=== PATIENT | female | born 1960 | race African-American/Black ===

== ENCOUNTER 2018-03-14 13:29 | Observation (INO) ==
[2018-03-14 14:22] LABS: Bilirubin,Urine Negative (Negative); Clarity,Urine Clear (Clear); Color,Urine Yellow (Yellw/Straw); Glucose,Urine (UA) Negative (Negative); Leukocyte Esterase,Urine Trace (Negative); Nitrite,Urine Negative (Negative); PH,Urine 6.5 (5.0-8.5); Urobilinogen,Urine 0.2 mg/dL (Less than 2)
[2018-03-14] MEDS ORDERED: Morphine Inj 4 MG/ML Vial IV.PUSH ONE (14:51)
[2018-03-14] MEDS ORDERED: Sod Chloride 0.9% Inj 1,000 ML IV.SIG ONE (14:51)
[2018-03-14 15:12] LABS: Baso % (Auto) 0.5 % (0.0-2.0); Eos % (Auto) 0.3 % (0.0-4.0); Hematocrit 36.1 % (35.0-46.0); Hemoglobin 11.7 gm/dL (11.6-15.3); Lymph # (Auto) 1.4 th/mm3 (1.0-4.8); Lymph % (Auto) 32.6 % (9.0-44.0); Mean Corpuscular HGB Conc 32.5 % (32.0-36.0); Mean Corpuscular Hemoglobin 22.2 pg (27.0-34.0); Mean Corpuscular Volume 68.2 fL (80.0-100.0); Mean Platelet Volume 9.2 fL (7.0-11.0); Mono # (Auto) 0.2 th/mm3 (0.0-0.9); Mono % (Auto) 4.3 % (0.0-8.0); Neut # (Auto) 2.6 th/mm3 (1.8-7.7); Neut % (Auto) 62.3 % (16.0-70.0); Platelet Count 246 th/mm3 (150-450); Red Blood Count 5.29 mil/mm3 (4.00-5.30); Red Cell Distribution Width 15.5 % (11.6-17.2); White Blood Count 4.2 th/mm3 (4.0-11.0)
[2018-03-14 15:20] LABS: Chloride 106 meq/L (98-107); Potassium 3.8 meq/L (3.5-5.1); Sodium 139 meq/L (136-145)
[2018-03-14 15:24] LABS: Albumin 3.3 g/dL (3.4-5.0); Calcium 8.8 mg/dL (8.5-10.1); Lipase 61 U/L (73-393)
[2018-03-14 15:25] LABS: Anion Gap 6 meq/L (5-15); Blood Urea Nitrogen 10 mg/dL (7-18); Carbon Dioxide 26.7 meq/L (21.0-32.0); Glucose,Random 103 mg/dL (74-106)
[2018-03-14 15:26] LABS: Activated Partial Thrombo Time 29.7 sec (23.4-31.7); Prothrombin Time 9.8 sec (9.8-11.6)
[2018-03-14 15:27] LABS: Alanine Aminotransferase 16 U/L (10-53); Aspartate Aminotransferase 11 U/L (15-37); Glomerular Filtration Rate 83 mL/min (>89)
[2018-03-14 15:30] LABS: Alkaline Phosphatase 73 U/L (45-117)
--- NOTE | 2018-03-14 16:51 | CT ---
EXAM DATE: 03/14/2018 4:42 PM EST AGE/SEX: 57 years / Female INDICATIONS: Left lower abdominal pain. Nausea and vomiting. CLINICAL DATA: This is the patient's initial encounter. Patient reports that signs and symptoms have been present for 1 week and indicates a pain score of 9/10. MEDICAL/SURGICAL HISTORY: None. section. ORAL CONTRAST: No oral contrast ingested. RADIATION DOSE: 22.27 CTDI (mGy) ; Patient body habitus COMPARISON: No prior exams available for comparison. TECHNIQUE: Multiple contiguous axial images were obtained through the abdomen and pelvis following b olus infusion of 90 ml Omnipaque 350 (iohexol) nonionic water-soluble contrast as a single exam dos e. No oral contrast ingested. Using automated exposure control and adjustment of the mA and/or kV ac cording to patient size, radiation dose was kept as low as reasonably achievable to obtain optimal di agnostic quality images. DICOM format image data is available electronically for review and comparis on. FINDINGS: Lower Lungs: The visualized lower lungs are clear. Liver: The liver has a homogeneous density without space-occupying lesion. There is no dilation of th e biliary tree. Spleen: Homogeneous density without enlargement. Pancreas: Unremarkable without mass or calcification. Kidneys: Normal in size and shape. No evidence of mass or hydronephrosis. Adrenal Glands: Unremarkable. Aorta: The aorta and proximal iliac vessels are grossly unremarkable without aneurysmal dilation. Bowel/Mesentery: Appendix not identified. No free air or free fluid. Abdominal Wall: There is a large midline anterior abdominal wall hernia measuring 8.5 cm in greatest transverse dimension. It has a neck measuring 3 cm in diameter. It contains a loop of distal small b owel. Stranding opacity and hazy opacity is seen in the fat surrounding the loop of bowel in the juan ia. Stool-like material is seen in the small bowel just proximal to this and there is minimal dilatat ion of the small bowel proximal to this measuring up to 3 cm in diameter. Mild wall thickening of the small bowel loop within the hernia. Retroperitoneum: No evidence of adenopathy in the retrocrural, para-aortic, or deep pelvic regions. Bladder: Contours are smooth. Reproductive Organs: Enlarged uterus likely representing fibroid uterus. Inguinal: The inguinal region is unremarkable without evidence of adenopathy. Bony Structures: Unremarkable. CONCLUSION: 1. Midline anterior abdominal wall hernia measuring 8 cm with a 3 cm neck. Hernia contains a loop of small bowel that has thickened wall and surrounding inflammatory change. Mild dilatation of the smal l bowel just proximal to the herniated loop. Stool-like material is in this segment of small bowel. T he more proximal small bowel loops are normal diameter. No free air or free fluid. 2. Fibroid uterus. Electronically signed by: Manuel Millard MD 03/14/2018 4:50 PM EST
[2018-03-14] MEDS ORDERED: Bisacodyl 10 MG Supp RECTAL PRN (18:59)
[2018-03-14] MEDS ORDERED: Acetaminophen 325 MG Tablet PO PRN (18:59)
[2018-03-14] MEDS ORDERED: Morphine Inj 4 MG/ML Vial IV.PUSH PRN (19:01)
--- NOTE | 2018-03-14 19:41 | ED ---
HPI General Chief complaint: Abdominal Pain Stated complaint: low abd pain/nausea (-vom) x 1wk Time Seen by Provider: 03/14/18 14:42 Source: patient Mode of arrival: ambulatory Limitations: no limitations History of Present Illness HPI narrative: Patient is a 57 year old female who comes in complaining of abdominal pain. She says the pain is been going on for the past week, but has gotten worse in the past few days. She reports nausea and vomiting, her last episode was earlier today. She says she is still having normal bowel movements. She has not taken anything for her pain. She says she has never had pain like this before. She denies fever or chills. Severity is mild to moderate. Related Data Home Medications Medication Instructions Recorded Confirmed No Known Home Medications 03/14/18 03/14/18 Allergies Allergy/AdvReac Type Severity Reaction Status Date / Time No Known Allergies Allergy Verified 03/14/18 13:35 Review of Systems ROS: all other systems reviewed are negative Constitutional Denies chills and Denies fever(s) ENT Denies dizziness Cardiovascular Denies chest pain and Denies dyspnea Respiratory Denies cough and Denies dyspnea Gastrointestinal Reports abdominal pain, Reports nausea and Reports vomiting Musculoskeletal Denies myalgias and Denies arthralgias Integumentary/Breasts Denies sores and Denies wounds Neurologic Denies focal weakness and Denies numbness [facility] Medical History Medical History Patient denies medical problems (Acute) Surgical History Surgical History H/O section (Acute) Social History Social History Second Hand Smoke Exposure: No Smoking Status: Never smoker How Often Do You Have a Drink Containing Alcohol: Never Immunization History Tetanus Immunization: >5 Years Exam Narrative Exam Narrative: GENERAL: Awake and alert, no acute distress. SKIN: Focused skin assessment warm/dry. HEAD: Atraumatic. Normocephalic. EYES: Pupils equal and round. No scleral icterus. ENT: Mucous membranes pink and moist. NECK: Trachea midline. No JVD. CARDIOVASCULAR: Regular rate and rhythm. No murmur appreciated. RESPIRATORY: No accessory muscle use. Clear to auscultation. Breath sounds equal bilaterally. GASTROINTESTINAL: Large hernia around the umbilicus and the surgical scar on her the middle of her abdomen. There is some erythema to the skin over the hernia. This is tender to palpation, not reducible. MUSCULOSKELETAL: No obvious deformities. No clubbing. No cyanosis. No edema. NEUROLOGICAL: Awake and alert. No obvious cranial nerve deficits. Motor grossly within normal limits. Normal speech. PSYCHIATRIC: Appropriate mood and affect; insight and judgment normal. Procedures Procedural Sedation Indications: other (hernia reduction) ASA Class: ASA 2 Moderate Systemic Disease Preparation: residential monitor applied, pulse oximeter, capnometry used, supplemental O2 applied, suction/airway equipment at bedside and IV secured IV Propofol Dose (mgs): 70 Patient Tolerated Procedure: well and no complications Complications: none Course Initial Documented Vital Signs Temperature 98.4 F 03/14/18 13:32 Pulse Rate 94 H 03/14/18 13:32 Respiratory Rate 16 03/14/18 13:32 Blood Pressure 184/76 H 03/14/18 13:32 Pulse Oximetry 96 03/14/18 13:32 Last Documented Vital Signs Temperature 98.4 F 03/14/18 13:32 Pulse Rate 88 03/14/18 15:11 Respiratory Rate 18 03/14/18 15:11 Blood Pressure 173/84 H 03/14/18 15:11 Pulse Oximetry 96 03/14/18 18:40 Medical Decision Making MDM Narrative Medical decision making narrative: Patient is a 57-year-old female who comes in complaining of abdominal pain. Exam shows a large hernia to the abdominal wall. Patient says this has been there, but has been increasing in size and tenderness. IV established, labs sent. Labs show no acute abnormalities. CT abdomen pelvis performed shows a large abdominal wall hernia with inflammation of the bowel wall. Procedural sedation was performed, and attempt was made to reduce the hernia, but this was unsuccessful. I spoke with Dr. Barrera of general surgery who will take the patient to the OR. Patient admitted to medicine and will be transferred to the main hospital for surgical reduction of her hernia. Medical Screen Exam Complete: Yes Emergency Medical Condition: Yes Differential Diagnosis Differential Diagnosis: Incarcerated hernia versus strangulated hernia versus bowel obstruction Medical Records Medical records reviewed: Yes I reviewed the patient's medical records. Lab Data Lab results reviewed: Yes I reviewed the patient's lab results. Result diagrams: 03/14/18 15:00 03/14/18 15:00 Lab Results 03/14/18 03/14/18 03/14/18 Range/Units 13:35 15:00 15:00 CBC w Diff Slide review pending WBC 4.2 (4.0-11.0) th/mm3 RBC 5.29 (4.00-5.30) mil/mm3 Hgb 11.7 (11.6-15.3) gm/dL Hct 36.1 (35.0-46.0) % MCV 68.2 L (80.0-100.0) fL MCH 22.2 L (27.0-34.0) pg MCHC 32.5 (32.0-36.0) % RDW 15.5 (11.6-17.2) % Plt Count 246 (150-450) th/mm3 MPV 9.2 (7.0-11.0) fL Neut % (Auto) 62.3 (16.0-70.0) % Lymph % (Auto) 32.6 (9.0-44.0) % Craig % (Auto) 4.3 (0.0-8.0) % Eos % (Auto) 0.3 (0.0-4.0) % Baso % (Auto) 0.5 (0.0-2.0) % Neut # (Auto) 2.6 (1.8-7.7) th/mm3 Lymph # (Auto) 1.4 (1.0-4.8) th/mm3 [place] # (Auto) 0.2 (0.0-0.9) th/mm3 Eos # (Auto) 0.0 (0.0-0.4) th/mm3 Baso # (Auto) 0.0 (0.0-0.2) th/mm3 WBC Differential . Diff Scan Auto diff confirmed Differential Comment . PT 9.8 (9.8-11.6) sec INR 1.0 Ratio APTT 29.7 (23.4-31.7) sec Sodium (136-145) meq/L Potassium (3.5-5.1) meq/L Chloride (98-107) meq/L Carbon Dioxide (21.0-32.0) meq/L Anion Gap (5-15) meq/L BUN (7-18) mg/dL Creatinine (0.50-1.00) mg/dL Estimated GFR (>89) mL/min Random Glucose (74-106) mg/dL Lactic Acid (0.4-2.0) mmol/L Calcium (8.5-10.1) mg/dL Total Bilirubin (0.2-1.0) mg/dL AST (15-37) U/L ALT (10-53) U/L Alkaline Phosphatase (45-117) U/L Total Protein (6.4-8.2) g/dL Albumin (3.4-5.0) g/dL Lipase (73-393) U/L Ur Collection Type Clean catch Urine Color Yellow (Yellw/Straw) Urine Clarity Clear (Clear) Urine pH 6.5 (5.0-8.5) Ur Specific [place] 1.020 (1.002-1.035) Urine Protein Negative (Neg-Trace) mg/dL Urine Glucose (UA) Negative (Negative) mg/dL Urine Ketones Negative (Negative) mg/dL Urine Occult Blood Trace (Negative) Urine Nitrate Negative (Negative) Urine Bilirubin Negative (Negative) Urine Urobilinogen 0.2 (Less than 2) mg/dL Ur Leukocyte Esterase Trace H (Negative) Urine RBC 4-15 H (0-3) /hpf Urine WBC 9-20 H (0-5) /hpf Ur Squamous Epith Cells 6-10 H (0-5) /hpf Micro UA Comment Culture indicated Ur Microscopic Review Microscopic reviewed Urine Culture Comments Culture indicated 03/14/18 03/14/18 Range/Units 15:00 15:00 CBC w Diff WBC (4.0-11.0) th/mm3 RBC (4.00-5.30) mil/mm3 Hgb (11.6-15.3) gm/dL Hct (35.0-46.0) % MCV (80.0-100.0) fL MCH (27.0-34.0) pg MCHC (32.0-36.0) % RDW (11.6-17.2) % Plt Count (150-450) th/mm3 MPV (7.0-11.0) fL Neut % (Auto) (16.0-70.0) % Lymph % (Auto) (9.0-44.0) % Craig % (Auto) (0.0-8.0) % Eos % (Auto) (0.0-4.0) % Baso % (Auto) (0.0-2.0) % Neut # (Auto) (1.8-7.7) th/mm3 Lymph # (Auto) (1.0-4.8) th/mm3 Craig # (Auto) (0.0-0.9) th/mm3 Eos # (Auto) (0.0-0.4) th/mm3 Baso # (Auto) (0.0-0.2) th/mm3 WBC Differential Diff Scan Differential Comment PT (9.8-11.6) sec INR Ratio APTT (23.4-31.7) sec Sodium 139 (136-145) meq/L Potassium 3.8 (3.5-5.1) meq/L Chloride 106 (98-107) meq/L Carbon Dioxide 26.7 (21.0-32.0) meq/L Anion Gap 6 (5-15) meq/L BUN 10 (7-18) mg/dL Creatinine 0.86 (0.50-1.00) mg/dL Estimated GFR 83 L (>89) mL/min Random Glucose 103 (74-106) mg/dL Lactic Acid 0.6 (0.4-2.0) mmol/L Calcium 8.8 (8.5-10.1) mg/dL Total Bilirubin 0.4 (0.2-1.0) mg/dL AST 11 L (15-37) U/L ALT 16 (10-53) U/L Alkaline Phosphatase 73 (45-117) U/L Total Protein 8.0 (6.4-8.2) g/dL Albumin 3.3 L (3.4-5.0) g/dL Lipase 61 L (73-393) U/L Ur Collection Type Urine Color (Yellw/Straw) Urine Clarity (Clear) Urine pH (5.0-8.5) Ur Specific [place] (1.002-1.035) Urine Protein (Neg-Trace) mg/dL Urine Glucose (UA) (Negative) mg/dL Urine Ketones (Negative) mg/dL Urine Occult Blood (Negative) Urine Nitrate (Negative) Urine Bilirubin (Negative) Urine Urobilinogen (Less than 2) mg/dL Ur Leukocyte Esterase (Negative) Urine RBC (0-3) /hpf Urine WBC (0-5) /hpf Ur Squamous Epith Cells (0-5) /hpf Micro UA Comment Ur Microscopic Review Urine Culture Comments Imaging Data Radiologist's impression: Abdomen/Pelvis CT 03/14/18 14:51 CONCLUSION: 1. Midline anterior abdominal wall hernia measuring 8 cm with a 3 cm neck. Hernia contains a loop of small bowel that has thickened wall and surrounding inflammatory change. Mild dilatation of the small bowel just proximal to the herniated loop. Stool-like material is in this segment of small bowel. The more proximal small bowel loops are normal diameter. No free air or free fluid. 2. Fibroid uterus. Discharge Plan Discharge Disposition Patient Disposition: 30 Still Patient Discharge Condition Condition: Stable Discharge Details Diagnosis: Incarcerated hernia Physicians Team ED Provider: Abimbola Sanderson Primary Care Provider: Manjinder Osborne Attending Provider: Sherif Simmons Other Providers: Jaciel Barrera Discharge Interventions Interventions: Vital Signs Last Done: 03/14/18 15:11 Status ED Status: Admitted Observation Patient
[2018-03-14] MEDS ORDERED: Glycopyrrolate Inj 1 MG/5 ML Syringe IV.PUSH ONE (20:33)
[2018-03-14] MEDS ORDERED: Lidocaine PF 1% Inj 5 ML Syringe OTHER ONE (20:33)
[2018-03-14] MEDS ORDERED: Neostigmine Inj 5 MG/5 ML Syringe IV.PUSH ONE (20:33)
[2018-03-14] MEDS ORDERED: ceFAZolin 2 GM Premix Inj 2 GM/50 ML PIGGYBACK IV.SIG ONE (20:38)
[2018-03-14] MEDS ORDERED: Bupivacaine/Epinephrine PF Inj 0.5% 30 ML Vial ONE (20:55)
[2018-03-14] MEDS ORDERED: Sugammadex Inj 200 MG/2 ML Vial IV.PUSH ONE (21:29)
[2018-03-14] MEDS ORDERED: fentaNYL Citrate Inj 250 MCG/5 ML Ampul ONE (21:47)
--- NOTE | 2018-03-14 21:52 | P.CONGS ---
[facility] Gen Surgery Consult Note Consult date: 03/14/18 Reason for consult: abdominal pain Narrative: There CONSULTATION NOTE FOR SURGICAL ATTENDING, DR. MIKAL BARRERA Patient has had an incisional hernia for some time she was able to reduce it at times but this time she could not she came into the emergency room found to have incarcerated incisional hernia at the umbilicus CT scan showed what appeared to be bowel stuck in the hernia. Surgery was consulted for evaluation and treatment of incarcerated incisional hernia Review of Systems Patient mainly complains of pain at her umbilicus where the incisional hernia is located All other systems reviewed negative except as stated in [facility] - History History Provided By: Patient - Medical History Medical History: Medical History (Last Reviewed 03/14/18 @ 21:48 by Mikal Barrera MD) Patient denies medical problems - Surgical History Surgical History: Surgical History (Last Reviewed 03/14/18 @ 21:48 by Mikal Barrera MD) H/O section - Social History I have reviewed the patient's Social History: Yes - Tobacco History Second Hand Smoke Exposure: No Tobacco Use In Past 30 Days: No Smoking Status: Never smoker - Alcohol History How Often Do You Have a Drink Containing Alcohol: Never - Immunization History Tetanus Immunization: >5 Years Medications and Allergies Active Medications: Active Medications Acetaminophen (Tylenol) 650 mg PO Q4H PRN PRN Reason: Headache, fever, pain 1-4 Al Hydroxide/Mg Hydroxide (Milk Of Magnesia Liq) 30 ml PO Q12H PRN PRN Reason: Mild Constipation Bisacodyl (Dulcolax Supp) 10 mg RECTAL DAILY PRN PRN Reason: SEVERE CONSITIPATION Sodium Chloride (Ns Inj) 1,000 mls @ 100 mls/hr IV.CONT .Q10H JASON Lactulose (Lactulose Liq) 30 ml PO DAILY PRN PRN Reason: SEVERE CONSITIPATION Morphine Sulfate (Morphine Inj) 4 mg IV.PUSH Q4H PRN PRN Reason: pain 5-10 Ondansetron HCl (Zofran Inj) 4 mg IV.PUSH Q6H PRN PRN Reason: NAUSEA OR VOMITING Sennosides (Senokot) 17.2 mg PO Q12H PRN PRN Reason: Moderate Constipation Sodium Chloride (Ns Flush) 2 ml IV.FLUSH PRN PRN PRN Reason: FLUSH AFTER USING IV ACCESS Allergies Allergy/AdvReac Type Severity Reaction Status Date / Time No Known Allergies Allergy Verified 03/14/18 13:35 Home Medications Medication Instructions Recorded Confirmed Type No Known Home Medications 03/14/18 03/14/18 History Exam Vital signs: Vital Signs 03/14/18 13:32 03/14/18 15:11 03/14/18 18:40 Temperature 98.4 F Pulse Rate 94 H 88 Respiratory Rate 16 18 Blood Pressure 184/76 H 173/84 H Pulse Oximetry 96 100 96 03/14/18 19:30 03/14/18 20:09 Temperature 98.4 F 98.6 F Pulse Rate 78 84 Respiratory Rate 20 26 H Blood Pressure 185/92 H 171/84 H Pulse Oximetry 99 Intake & Output 03/14/18 03/14/18 03/15/18 06:59 18:59 06:59 Intake Total 1000 / 1000 500 / 500 Output Total Balance 1000 / 1000 490 / 490 Weight 119 kg Intake: IV 1000 / 1000 NS Inj 1,000 ML @ Wide Open IV. 1000 / 1000 SIG BOLUS ONE Rx#:[id number] Anesthesia Amount 500 / 500 Output: Estimated Blood Loss Narrative: Patient is on the stretcher Pupils equal round reactive EOMI Neck is supple Chest clear heart regular rate Abdomen obese soft with a incarcerated hard firm incisional hernia at the umbilicus. No rebound or guarding Extremities moves all extremities well no clubbing cyanosis or edema Neurologic she is alert oriented moderate distress Results - Labs 03/14/18 15:00 03/14/18 15:00 Abnormal lab results 03/14/18 03/14/18 03/14/18 Range/Units 13:35 15:00 15:00 MCV 68.2 L (80.0-100.0) fL MCH 22.2 L (27.0-34.0) pg Estimated GFR 83 L (>89) mL/min AST 11 L (15-37) U/L Albumin 3.3 L (3.4-5.0) g/dL Lipase 61 L (73-393) U/L Ur Leukocyte Esterase Trace H (Negative) Urine RBC 4-15 H (0-3) /hpf Urine WBC 9-20 H (0-5) /hpf Ur Squamous Epith Cells 6-10 H (0-5) /hpf Laboratory Last Values CBC w Diff Slide review pending 03/14/18 15:00 WBC 4.2 th/mm3 (4.0-11.0) 03/14/18 15:00 RBC 5.29 mil/mm3 (4.00-5.30) 03/14/18 15:00 Hgb 11.7 gm/dL (11.6-15.3) 03/14/18 15:00 Hct 36.1 % (35.0-46.0) 03/14/18 15:00 MCV 68.2 fL (80.0-100.0) L 03/14/18 15:00 MCH 22.2 pg (27.0-34.0) L 03/14/18 15:00 MCHC 32.5 % (32.0-36.0) 03/14/18 15:00 RDW 15.5 % (11.6-17.2) 03/14/18 15:00 Plt Count 246 th/mm3 (150-450) 03/14/18 15:00 MPV 9.2 fL (7.0-11.0) 03/14/18 15:00 Neut % (Auto) 62.3 % (16.0-70.0) 03/14/18 15:00 Lymph % (Auto) 32.6 % (9.0-44.0) 03/14/18 15:00 [place] % (Auto) 4.3 % (0.0-8.0) 03/14/18 15:00 Eos % (Auto) 0.3 % (0.0-4.0) 03/14/18 15:00 Baso % (Auto) 0.5 % (0.0-2.0) 03/14/18 15:00 Neut # (Auto) 2.6 th/mm3 (1.8-7.7) 03/14/18 15:00 Lymph # (Auto) 1.4 th/mm3 (1.0-4.8) 03/14/18 15:00 [place] # (Auto) 0.2 th/mm3 (0.0-0.9) 03/14/18 15:00 Eos # (Auto) 0.0 th/mm3 (0.0-0.4) 03/14/18 15:00 Baso # (Auto) 0.0 th/mm3 (0.0-0.2) 03/14/18 15:00 WBC Differential . 03/14/18 15:00 Diff Scan Auto diff confirmed 03/14/18 15:00 Differential Comment . 03/14/18 15:00 PT 9.8 sec (9.8-11.6) 03/14/18 15:00 INR 1.0 Ratio 03/14/18 15:00 APTT 29.7 sec (23.4-31.7) 03/14/18 15:00 Sodium 139 meq/L (136-145) 03/14/18 15:00 Potassium 3.8 meq/L (3.5-5.1) 03/14/18 15:00 Chloride 106 meq/L (98-107) 03/14/18 15:00 Carbon Dioxide 26.7 meq/L (21.0-32.0) 03/14/18 15:00 Anion Gap 6 meq/L (5-15) 03/14/18 15:00 BUN 10 mg/dL (7-18) 03/14/18 15:00 Creatinine 0.86 mg/dL (0.50-1.00) 03/14/18 15:00 Estimated GFR 83 mL/min (>89) L 03/14/18 15:00 Random Glucose 103 mg/dL (74-106) 03/14/18 15:00 Lactic Acid 0.6 mmol/L (0.4-2.0) 03/14/18 15:00 Calcium 8.8 mg/dL (8.5-10.1) 03/14/18 15:00 Total Bilirubin 0.4 mg/dL (0.2-1.0) 03/14/18 15:00 AST 11 U/L (15-37) L 03/14/18 15:00 ALT 16 U/L (10-53) 03/14/18 15:00 Alkaline Phosphatase 73 U/L (45-117) 03/14/18 15:00 Total Protein 8.0 g/dL (6.4-8.2) 03/14/18 15:00 Albumin 3.3 g/dL (3.4-5.0) L 03/14/18 15:00 Lipase 61 U/L (73-393) L 03/14/18 15:00 Ur Collection Type Clean catch 03/14/18 13:35 Urine Color Yellow (Yellw/Straw) 03/14/18 13:35 Urine Clarity Clear (Clear) 03/14/18 13:35 Urine pH 6.5 (5.0-8.5) 03/14/18 13:35 Ur Specific [place] 1.020 (1.002-1.035) 03/14/18 13:35 Urine Protein Negative mg/dL (Neg-Trace) 03/14/18 13:35 Urine Glucose (UA) Negative mg/dL (Negative) 03/14/18 13:35 Urine Ketones Negative mg/dL (Negative) 03/14/18 13:35 Urine Occult Blood Trace (Negative) 03/14/18 13:35 Urine Nitrate Negative (Negative) 03/14/18 13:35 Urine Bilirubin Negative (Negative) 03/14/18 13:35 Urine Urobilinogen 0.2 mg/dL (Less than 2) 03/14/18 13:35 Ur Leukocyte Esterase Trace (Negative) H 03/14/18 13:35 Urine RBC 4-15 /hpf (0-3) H 03/14/18 13:35 Urine WBC 9-20 /hpf (0-5) H 03/14/18 13:35 Ur Squamous Epith Cells 6-10 /hpf (0-5) H 03/14/18 13:35 Micro UA Comment Culture indicated 03/14/18 13:35 Ur Microscopic Review Microscopic reviewed 03/14/18 13:35 Urine Culture Comments Culture indicated 03/14/18 13:35 - Imaging Imaging: ITS Impressions Abdomen/Pelvis CT 03/14/18 14:51 CONCLUSION: 1. Midline anterior abdominal wall hernia measuring 8 cm with a 3 cm neck. Hernia contains a loop of small bowel that has thickened wall and surrounding inflammatory change. Mild dilatation of the small bowel just proximal to the herniated loop. Stool-like material is in this segment of small bowel. The more proximal small bowel loops are normal diameter. No free air or free fluid. 2. Fibroid uterus. CT scan - abdomen: report reviewed, image reviewed CT scan - pelvis: report reviewed, image reviewed Assessment and Plan - Assessment (1) Incisional hernia, incarcerated Code(s): K43.0 - Incisional hernia with obstruction, without gangrene Status: Acute (2) Incarcerated hernia Code(s): K46.0 - Unspecified abdominal hernia with obstruction, without gangrene Status: Acute - Plan CONSULTATION NOTE FOR SURGICAL ATTENDING, DR. MIKAL BARRERA Patient has an incarcerated incisional hernia at the midline just around the umbilicus from an apparent that she had in the past. CT scan shows bowel stuck in the hernia is fairly tight cannot be reduced plan immediate surgical intervention this was explained to the patient in detail she appeared to understand ORs getting room a ready I attest that I had a [id number] encounter with the patient on the same day, and personally performed and documented my assessment and findings in the medical record. The following services were provided during this hospital visit: Chart data review, vital sign assessments/reviewing monitor data Review of consultations notes if present. Medication orders/review and/or management Ordering and/or reviewing lab tests Ordering and/or interpreting/reviewing x-rays and/or diagnostic studies Care of the patient and discussion of the patient with the care team Documentation time To help prompt me to consider important information that might be impacting today's encounter and assessment, Information from prior notes written by myself or my colleagues may have been "brought forward/copy and pasted" into today's note.
[2018-03-14] MEDS: Sod Chloride 0.9% Inj 1,000 ML IV.CONT SCH (22:30)
--- NOTE | 2018-03-15 00:11 | MP ---
cc: Jaciel Barrera MD, Joseph D MD DATE OF OPERATION: DATE OF PROCEDURE: 03/14/2018 PREOPERATIVE DIAGNOSIS: Incarcerated incisional hernia. POSTOPERATIVE DIAGNOSIS: Incarcerated incisional hernia. PROCEDURE PERFORMED: Reduction of incarcerated incisional hernia with primary repair. ANESTHESIA: General. SURGEON: Jaciel Barrera MD INDICATIONS FOR PROCEDURE: This is a 57-year-old female who has had a few C-sections through a midline incision. She developed bulging in this area and then she could in fact push the hernia back in. She came to the emergency room. CT scan showed incarcerated hernia with bowel. Surgery was consulted. PROCEDURE: The patient was brought to the operating room and placed in supine position. After anesthesia, her abdomen was prepped with Betadine. A timeout was done. She was given preoperative antibiotics. We made an incision around the umbilicus down to her previous incision, dissected down to the subcutaneous skin where this hernia sac is identified. We were able to carefully tease this around from the surrounding tissue. The hernia could not be reduced. We then elongate the fascial defect by about 2 cm. This allows us to enter the hernia sac. There was some fluid within the sac, which was evacuated. The contents were reduced. There is no compromise of the blood supply. Most of it is omentum. The omentum was completely reduced. It has a good blood supply and it looks viable. We then dissected out circumferentially along the fascial edges about 3 cm to normal-appearing fascia. Because of the amount of inflammatory response of the subcutaneous tissues, I elected just to primary repair this with an interrupted 0 Ethibond suture in a horizontal area in a vertical fashion. Once this was completed, a complete closure of fascia under minimal if any tension. We then reapproximate the deep layer with a 2-0 Vicryl and the skin is reapproximated with a skin stapling device. The patient tolerated the procedure well. After sterile bandage was applied and abdominal binder she returned to recovery room with no immediate postop complications. Jaciel Barrera MD JDB/te/do , 10:05 PM , 10:12 PM
[2018-03-15] MEDS: Sod Chloride 0.9% Inj 1,000 ML IV.CONT SCH ×2 (06:38→09:02)
--- NOTE | 2018-03-15 08:35 | P.HPIM ---
History of Present Illness Primary Care Physician: Manjinder Osborne MD Chief Complaint: abdominal pain History of Present Illness: patient is a 57 y/o female with no significant past medical history who presented to ER with abdominal pain. she says that the pain started about a week ago. the pain was initially colicky in nature but yesterday it got worse and didn't go away. pain was periumbilical and was associated with nausea, vomiting and chills. she denies fever or change in her BM. Review of Systems All other systems reviewed negative except as stated in HPI PMFSH - History History Provided By: Patient - Medical History Medical History: Medical History (Last Reviewed 03/15/18 @ 08:32 by Ai Bynum MD) Patient denies medical problems - Surgical History Surgical History: Surgical History (Last Reviewed 03/15/18 @ 08:32 by Ai Bynum MD) H/O section - Family History Family History: Family History (Last Updated 03/15/18 @ 08:32 by Ai Bynum MD) Other Family history normal - Tobacco History Second Hand Smoke Exposure: No Tobacco Use In Past 30 Days: No Smoking Status: Never smoker - Alcohol History How Often Do You Have a Drink Containing Alcohol: Monthly or less - Substance Use History Substance History: No History of Abuse - Immunization History Tetanus Immunization: >5 Years Medications and Allergies Active Medications: Active Medications Acetaminophen (Tylenol) 650 mg PO Q4H PRN PRN Reason: Headache, fever, pain 1-4 Hydrocodone Bitart/Acetaminophen ([place] 5/325) 1 tab PO Q6H PRN PRN Reason: PAIN 1-10 AND/OR FEVER >101F Al Hydroxide/Mg Hydroxide (Milk Of Magnjonathan Liq) 30 ml PO Q12H PRN PRN Reason: Mild Constipation Bisacodyl (Dulcolax Supp) 10 mg RECTAL DAILY PRN PRN Reason: SEVERE CONSITIPATION Sodium Chloride (Ns Inj) 1,000 mls @ 100 mls/hr IV.CONT .Q10H [facility] Last Admin: 03/15/18 06:38 Dose: Not Given Acetaminophen (Ofirmev Inj) 1,000 mg in 100 mls @ 400 mls/hr IV.SIG Q6H [facility] Stop: 03/15/18 16:14 Last Admin: 03/15/18 05:34 Dose: 400 mls/hr Lactulose (Lactulose Liq) 30 ml PO DAILY PRN PRN Reason: SEVERE CONSITIPATION Miscellaneous Information (Misc Nursing Information) 0 each OTHER UNSCH PRN PRN Reason: SEE LABEL COMMENTS Stop: 03/15/18 22:43 Morphine Sulfate (Morphine Inj) 4 mg IV.PUSH Q4H PRN PRN Reason: pain 5-10 Ondansetron HCl (Zofran Inj) 4 mg IV.PUSH Q6H PRN PRN Reason: NAUSEA OR VOMITING Ondansetron HCl (Zofran Inj) 4 mg IV.PUSH Q6H PRN PRN Reason: NAUSEA OR VOMITING Sennosides (Senokot) 17.2 mg PO Q12H PRN PRN Reason: Moderate Constipation Sodium Chloride (Ns Flush) 2 ml IV.FLUSH PRN PRN PRN Reason: FLUSH AFTER USING IV ACCESS Allergies Allergy/AdvReac Type Severity Reaction Status Date / Time No Known Allergies Allergy Verified 03/14/18 13:35 Home Medications Medication Instructions Recorded Confirmed Type No Known Home Medications 03/14/18 03/14/18 History Exam Vital signs: Vital Signs 03/14/18 13:32 03/14/18 15:11 03/14/18 18:40 Temperature 98.4 F Pulse Rate 94 H 88 Respiratory Rate 16 18 Blood Pressure 184/76 H 173/84 H Pulse Oximetry 96 100 96 03/14/18 19:30 03/14/18 20:09 03/14/18 21:37 Temperature 98.4 F 98.6 F 98.2 F Pulse Rate 78 84 80 Respiratory Rate 20 26 H 15 Blood Pressure 185/92 H 171/84 H 136/80 Pulse Oximetry 99 98 03/14/18 21:45 03/14/18 22:00 03/14/18 22:15 Temperature Pulse Rate 78 72 74 Respiratory Rate 15 18 25 H Blood Pressure 140/63 120/58 L 130/67 Pulse Oximetry 99 93 L 95 03/14/18 22:30 03/14/18 22:36 03/15/18 00:00 Temperature 98.1 F 98.6 F Pulse Rate 77 83 81 Respiratory Rate 17 21 18 Blood Pressure 131/63 135/62 146/79 H Pulse Oximetry 98 99 96 03/15/18 04:00 03/15/18 07:53 Temperature 98.4 F 98.3 F Pulse Rate 88 84 Respiratory Rate 18 15 Blood Pressure 129/73 142/76 H Pulse Oximetry 96 Intake & Output 03/14/18 03/15/18 03/15/18 18:59 06:59 18:59 Intake Total 1000 / 1000 600 / 600 Output Total 1010 / 1010 Balance 1000 / 1000 -410 / -410 Weight 119 kg 122.9 kg Intake: IV 1000 / 1000 50 / 50 NS Inj 1,000 ML @ Wide Open IV. 1000 / 1000 SIG BOLUS ONE Rx#:[id number] Ancef 2 GM Premix Inj 2 gm In 50 / 50 50 ml @ 0 mls/hr IV.SIG .STK- MED ONE Rx#:[id number] Oral 50 / 50 Anesthesia Amount 500 / 500 Output: Urine 1000 / 1000 Estimated Blood Loss Other: # Voids 0 Date of Last Bowel Movement 03/13/18 - Constitutional no acute distress - Routine HEENT Exam Eye: Present: PERRL - Routine Neck Exam Present: supple - Routine Respiratory Exam Present: CTA bilaterally - Routine Cardiovascular Exam Present: RRR - Routine Abdominal Exam Present: soft, tenderness (mild left periumbilical tenderness.) - Routine Extremities Exam Comments: no pedal edema. - Routine Neurological Exam Present: alert, oriented X3 Results - Labs CBC & Chem 7: 03/14/18 15:00 03/14/18 15:00 Labs: Short CBC 03/14/18 Range/Units 15:00 WBC 4.2 (4.0-11.0) th/mm3 Hgb 11.7 (11.6-15.3) gm/dL Hct 36.1 (35.0-46.0) % Plt Count 246 (150-450) th/mm3 BMP 03/14/18 15:00 Sodium 139 Potassium 3.8 Chloride 106 Carbon Dioxide 26.7 BUN 10 Creatinine 0.86 Calcium 8.8 Liver Function 03/14/18 Range/Units 15:00 Total Bilirubin 0.4 (0.2-1.0) mg/dL AST 11 L (15-37) U/L ALT 16 (10-53) U/L Alkaline Phosphatase 73 (45-117) U/L Albumin 3.3 L (3.4-5.0) g/dL Urine 03/14/18 Range/Units 13:35 Urine Color Yellow (Yellw/Straw) Urine Clarity Clear (Clear) Urine pH 6.5 (5.0-8.5) Ur Specific [place] 1.020 (1.002-1.035) Urine Protein Negative (Neg-Trace) mg/dL Urine Glucose (UA) Negative (Negative) mg/dL - Imaging Impressions Abdomen/Pelvis CT 03/14/18 14:51 CONCLUSION: 1. Midline anterior abdominal wall hernia measuring 8 cm with a 3 cm neck. Hernia contains a loop of small bowel that has thickened wall and surrounding inflammatory change. Mild dilatation of the small bowel just proximal to the herniated loop. Stool-like material is in this segment of small bowel. The more proximal small bowel loops are normal diameter. No free air or free fluid. 2. Fibroid uterus. Caprini VTE Risk Assessment Caprini VTE Risk Assessment: Moderate/High Risk (score >= 2) Caprini Risk Assessment Model: Point Value = 1 Point Value = 2 Point Value = 3 Point Value = 5 Age 41-60 Minor surgery BMI > 25 kg/m2 Swollen legs Varicose veins or History of unexplained or recurrent spontaneous Oral contraceptives or hormone replacement Sepsis (< 1 month) Serious lung disease, including pneumonia (< 1 month) Abnormal pulmonary function Acute myocardial infarction Congestive heart failure (< 1 month) History of inflammatory bowel disease Medical patient at bed rest Age 61-74 Arthroscopic surgery Major open surgery (> 45 min) Laparoscopic surgery (> 45 min) Malignancy Confined to bed (> 72 hours) Immobilizing plaster cast Central venous access Age >= 75 History of VTE Family history of VTE Factor V Leiden Prothrombin [id number] Lupus anticoagulant Anticardiolipin antibodies Elevated serum homocysteine Heparin-induced thrombocytopenia Other congenital or acquired thrombophilia Stroke (< 1 month) Elective arthroplasty Hip, pelvis, or leg fracture Acute spinal cord injury (< 1 month) Prophylaxis Regimen: Total Risk Factor Score Risk Level Prophylaxis Regimen 0-1 Low Early ambulation 2 Moderate Order ONE of the following: *Sequential Compression Device (SCD) *Heparin 5000 units SQ BID 3-4 Higher Order ONE of the following medications: *Heparin 5000 units SQ TID *Enoxaparin/Lovenox 40 mg SQ daily (WT < 150 kg, CrCl > 30 mL/min) *Enoxaparin/Lovenox 30 mg SQ daily (WT < 150 kg, CrCl > 10-29 mL/min) *Enoxaparin/Lovenox 30 mg SQ BID (WT < 150 kg, CrCl > 30 mL/min) AND/OR *Sequential Compression Device (SCD) 5 or more Highest Order ONE of the following medications: *Heparin 5000 units SQ TID (Preferred with Epidurals) *Enoxaparin/Lovenox 40 mg SQ daily (WT < 150 kg, CrCl > 30 mL/min) *Enoxaparin/Lovenox 30 mg SQ daily (WT < 150 kg, CrCl > 10-29 mL/min) *Enoxaparin/Lovenox 30 mg SQ BID (WT < 150 kg, CrCl > 30 mL/min) AND *Sequential Compression Device (SCD) Assessment and Plan - Plan A/P -incarcerated incisional hernia s/p surgical repair- continue with pain control/ management per surgery. Discussed Condition With: the patient. Discharge Planning: when cleared by surgery. H&P: Quality - VTE Deep Vein Thrombosis/Pulmonary Embolism Present on Admission: No
--- NOTE | 2018-03-15 10:42 | P.PNGS ---
Subjective Interval history: DAILY PROGRESS NOTE FOR SURGICAL ATTENDING, DR. MIKAL MOFFETT Resting in bed Tender at incision site Physical Exam Vital signs: Vital Signs 03/14/18 13:32 03/14/18 15:11 03/14/18 18:40 Temperature 98.4 F Pulse Rate 94 H 88 Respiratory Rate 16 18 Blood Pressure 184/76 H 173/84 H Pulse Oximetry 96 100 96 03/14/18 19:30 03/14/18 20:09 03/14/18 21:37 Temperature 98.4 F 98.6 F 98.2 F Pulse Rate 78 84 80 Respiratory Rate 20 26 H 15 Blood Pressure 185/92 H 171/84 H 136/80 Pulse Oximetry 99 98 03/14/18 21:45 03/14/18 22:00 03/14/18 22:15 Temperature Pulse Rate 78 72 74 Respiratory Rate 15 18 25 H Blood Pressure 140/63 120/58 L 130/67 Pulse Oximetry 99 93 L 95 03/14/18 22:30 03/14/18 22:36 03/15/18 00:00 Temperature 98.1 F 98.6 F Pulse Rate 77 83 81 Respiratory Rate 17 21 18 Blood Pressure 131/63 135/62 146/79 H Pulse Oximetry 98 99 96 03/15/18 04:00 03/15/18 07:53 Temperature 98.4 F 98.3 F Pulse Rate 88 84 Respiratory Rate 18 15 Blood Pressure 129/73 142/76 H Pulse Oximetry 96 Intake & Output 03/14/18 03/15/18 03/15/18 18:59 06:59 18:59 Intake Total 1000 / 1000 600 / 600 1000 / 1000 Output Total 1010 / 1010 Balance 1000 / 1000 -410 / -410 1000 / 1000 Weight 119 kg 122.9 kg Intake: IV 1000 / 1000 50 / 50 1000 / 1000 NS Inj 1,000 ML @ 100 mls/hr IV 1000 / 1000 .CONT .Q10H [facility] Rx#:[id number] NS Inj 1,000 ML @ Wide Open IV. 1000 / 1000 SIG BOLUS ONE Rx#:[id number] Ancef 2 GM Premix Inj 2 gm In 50 / 50 50 ml @ 0 mls/hr IV.SIG .STK- MED ONE Rx#:[id number] Oral 50 / 50 Anesthesia Amount 500 / 500 Output: Urine 1000 / 1000 Estimated Blood Loss Other: # Voids 0 Date of Last Bowel Movement 03/13/18 Narrative: Alert and awake Abd: Binder in place; tender at incision sites; dressing with scant amount of blood; abdomen soft Results - Labs 03/14/18 15:00 03/14/18 15:00 - Imaging Imaging: ITS Impressions Abdomen/Pelvis CT 03/14/18 14:51 CONCLUSION: 1. Midline anterior abdominal wall hernia measuring 8 cm with a 3 cm neck. Hernia contains a loop of small bowel that has thickened wall and surrounding inflammatory change. Mild dilatation of the small bowel just proximal to the herniated loop. Stool-like material is in this segment of small bowel. The more proximal small bowel loops are normal diameter. No free air or free fluid. 2. Fibroid uterus. Assessment and Plan - Assessment (1) Incisional hernia, incarcerated Code(s): K43.0 - Incisional hernia with obstruction, without gangrene Status: Acute Plan: 57 year old female POD1 incisional hernia primary repair -Continue regular diet---encouraged small meals for now -Adjusted pain meds -OOB and mobilize -IS -Continue abdominal binder -Likely DC in 24-48 hours (2) Incarcerated hernia Code(s): K46.0 - Unspecified abdominal hernia with obstruction, without gangrene Status: Acute - Attending Attestation NOTE FOR SURGICAL ATTENDING, DR. MIKAL MOFFETT I agree with above assessment and plan. The exam, history, and the medical decision-making described in the above note were completed with the assistance of the mid-level provider. I reviewed and agree with the findings presented. I attest that I had a [id number] encounter with the patient on the same day, and personally performed and documented my assessment and findings in the medical record. The following services were provided during this hospital visit: Chart data review, vital sign assessments/reviewing monitor data Review of consultations notes if present. Medication orders/review and/or management Ordering and/or reviewing lab tests Ordering and/or interpreting/reviewing x-rays and/or diagnostic studies Care of the patient and discussion of the patient with the care team Documentation time To help prompt me to consider important information that might be impacting today's encounter and assessment, Information from prior notes written by myself or my colleagues may have been "brought forward/copy and pasted" into today's note.
[2018-03-15] MEDS ORDERED: Influenza (Quadrivalent) Vaccine 0.5 ML Syringe IM ONE (16:00)
--- NOTE | 2018-03-16 08:02 | P.PNIM ---
Subjective Interval history: in no acute distress. minimal to mild abdominal pain. no nausea or vomiting. low grade fever last night with no new complaints. Physical Exam Vital signs: Vital Signs 03/15/18 11:51 03/15/18 15:55 03/15/18 20:00 Temperature 98.4 F 98.2 F 100.3 F H Pulse Rate 88 93 H 91 H Respiratory Rate 16 18 18 Blood Pressure 145/82 H 140/71 159/76 H Pulse Oximetry 97 97 03/16/18 00:00 Temperature 99.1 F Pulse Rate 97 H Respiratory Rate 18 Blood Pressure 126/60 Pulse Oximetry 96 Intake & Output 03/15/18 03/16/18 03/16/18 18:59 06:59 18:59 Intake Total 1200 / 1200 1000 / 1000 Output Total 1550 / 1550 Balance -350 / -350 1000 / 1000 Weight 122.9 kg 124.8 kg Intake: IV 1200 / 1200 1000 / 1000 NS Inj 1,000 ML @ 100 mls/hr IV 1000 / 1000 1000 / 1000 .CONT .Q10H [facility] Rx#:[id number] Ofirmev Inj 1,000 mg In 100 ml 200 / 200 @ 400 mls/hr IV.SIG Q6H [facility] Rx# :[id number] Output: Urine 1550 / 1550 Other: # Voids 1 1 Date of Last Bowel Movement 03/13/18 03/13/18 Weight On Admission 122.9 kg - Constitutional no acute distress - Routine Respiratory Exam Present: CTA bilaterally - Routine Cardiovascular Exam Present: RRR - Routine Abdominal Exam Present: soft - Routine Extremities Exam Comments: no pedal edema. - Routine Neurological Exam Present: alert, oriented X3 Results - Labs CBC & Chem 7: 03/14/18 15:00 03/14/18 15:00 Microbiology 03/14/18 13:35 Clean Catch Urine Urine Culture - Preliminary Immature growth - reincubate Assessment and Plan - Plan A/P -incarcerated incisional hernia s/p surgical repair- continue with pain control/ management per surgery. Discharge Planning: home; within the next 24 hrs; when cleared by surgery. E- Foarsce was reviewed.
--- NOTE | 2018-03-16 13:21 | P.PNGS ---
Subjective Patient reports: feels better, pain is less Physical Exam Vital signs: Vital Signs 03/15/18 15:55 03/15/18 20:00 03/16/18 00:00 Temperature 98.2 F 100.3 F H 99.1 F Pulse Rate 93 H 91 H 97 H Respiratory Rate 18 18 18 Blood Pressure 140/71 159/76 H 126/60 Pulse Oximetry 97 97 96 03/16/18 08:00 Temperature 98.5 F Pulse Rate 85 Respiratory Rate 16 Blood Pressure 149/74 H Pulse Oximetry 96 Intake & Output 03/15/18 03/16/18 03/16/18 18:59 06:59 18:59 Intake Total 1200 / 1200 1000 / 1000 Output Total 1550 / 1550 Balance -350 / -350 1000 / 1000 Weight 122.9 kg 124.8 kg Intake: IV 1200 / 1200 1000 / 1000 NS Inj 1,000 ML @ 100 mls/hr IV 1000 / 1000 1000 / 1000 .CONT .Q10H [facility] Rx#:[id number] Ofirmev Inj 1,000 mg In 100 ml 200 / 200 @ 400 mls/hr IV.SIG Q6H [facility] Rx# :[id number] Output: Urine 1550 / 1550 Other: # Voids 1 1 Date of Last Bowel Movement 03/13/18 03/13/18 Weight On Admission 122.9 kg - Constitutional no acute distress - Routine Abdominal Exam Present: soft, normoactive bowel sounds, tenderness. Absent: distended, rebound Comments: surgical incisions and dressing clean, dry and intact without complications Results - Labs 03/14/18 15:00 03/14/18 15:00 - Imaging Imaging: ITS Impressions Abdomen/Pelvis CT 03/14/18 14:51 CONCLUSION: 1. Midline anterior abdominal wall hernia measuring 8 cm with a 3 cm neck. Hernia contains a loop of small bowel that has thickened wall and surrounding inflammatory change. Mild dilatation of the small bowel just proximal to the herniated loop. Stool-like material is in this segment of small bowel. The more proximal small bowel loops are normal diameter. No free air or free fluid. 2. Fibroid uterus. Assessment and Plan - Assessment (1) Incisional hernia, incarcerated Code(s): K43.0 - Incisional hernia with obstruction, without gangrene Status: Acute Plan: 57 year old female POD2 incisional hernia primary repair -Continue regular diet -OOB and mobilize -IS -Continue abdominal binder -DC, fu in 1 week (2) Incarcerated hernia Code(s): K46.0 - Unspecified abdominal hernia with obstruction, without gangrene Status: Acute
--- NOTE | 2018-03-16 13:30 | P.DS ---
Date of admission: 03/14/18 18:59 Primary care physician: Manjinder Osborne MD Brief History from admission: patient is a 57 y/o female with no significant past medical history who presented to ER with abdominal pain. she says that the pain started about a week ago. the pain was initially colicky in nature but yesterday it got worse and didn't go away. pain was periumbilical and was associated with nausea, vomiting and chills. she denies fever or change in her BM. DS: Medications - Discharge Medications Prescriptions: hydrocodone-acetaminophen 1 tab PO Q6H PRN #18 tab PRN Reason: Acute post op pain exception DS: Summary Hospital Course: -incarcerated incisional hernia s/p surgical repair- continue with pain control/ management per surgery. - Time Spent with Patient Total time spent providing and/or coordinating discharge services: Less than 30 minutes - Quality: VTE Deep Vein Thrombosis/Pulmonary Embolism Present on Admission: No Exam Vital signs: Vital Signs 03/15/18 15:55 03/15/18 20:00 03/16/18 00:00 Temperature 98.2 F 100.3 F H 99.1 F Pulse Rate 93 H 91 H 97 H Respiratory Rate 18 18 18 Blood Pressure 140/71 159/76 H 126/60 Pulse Oximetry 97 97 96 03/16/18 08:00 Temperature 98.5 F Pulse Rate 85 Respiratory Rate 16 Blood Pressure 149/74 H Pulse Oximetry 96 Intake & Output 03/15/18 03/16/18 03/16/18 18:59 06:59 18:59 Intake Total 1200 / 1200 1000 / 1000 Output Total 1550 / 1550 Balance -350 / -350 1000 / 1000 Weight 122.9 kg 124.8 kg Intake: IV 1200 / 1200 1000 / 1000 NS Inj 1,000 ML @ 100 mls/hr IV 1000 / 1000 1000 / 1000 .CONT .Q10H [facility] Rx#:[id number] Ofirmev Inj 1,000 mg In 100 ml 200 / 200 @ 400 mls/hr IV.SIG Q6H [facility] Rx# :[id number] Output: Urine 1550 / 1550 Other: # Voids 1 1 Date of Last Bowel Movement 03/13/18 03/13/18 Weight On Admission 122.9 kg - Constitutional no acute distress - Routine Respiratory Exam Present: CTA bilaterally - Routine Cardiovascular Exam Present: RRR - Routine Abdominal Exam Present: soft - Routine Extremities Exam Comments: no pedal edema. - Routine Neurological Exam Present: alert, oriented X3 Results Procedures completed during hospitalization: surgical repair of incisional hernia. Pending studies at discharge: Pending at discharge 03/14/18 07:50 Surgical [PTH] Routine - Impressions ITS Impressions Abdomen/Pelvis CT 03/14/18 14:51 CONCLUSION: 1. Midline anterior abdominal wall hernia measuring 8 cm with a 3 cm neck. Hernia contains a loop of small bowel that has thickened wall and surrounding inflammatory change. Mild dilatation of the small bowel just proximal to the herniated loop. Stool-like material is in this segment of small bowel. The more proximal small bowel loops are normal diameter. No free air or free fluid. 2. Fibroid uterus. Discharge Plan - Discharge Disposition Patient Disposition: 01 Discharge Home - Discharge Condition Condition: Stable - Discharge Order Discharge Orders: Discharge Order (Routine); Ordered 03/16/18 Ordered By: Ai Bynum General Surgery Clear for Discharge (Routine); Ordered 03/16/18 Ordered By: Richard Rosas - Physicians Team Primary Care Provider: Manjinder Osborne Attending Provider: Ai Bynum Other Providers: Jaciel Barrera MD
[2018-03-16 14:51] VITALS: BP 122/59; PULSE 79; RESP 17; TEMP 97.8; O2SAT 95
== END 2018-03-16 15:33 | disposition home or self-care (01) ==
LOC: PHED 13:29 → PHEDH 13:29 → N07 19:12 → HPAC 20:05 → N07 21:13
PROVIDERS: ADMIT Internal Medicine; ATTEND Internal Medicine
DX: K43.0 Incisional hernia with obstruction, without gangrene